=== PATIENT | male | born 1975 | race Hispanic/Latino ===

== ENCOUNTER → 2023-09-17 | Emergency (ER) | payer BC, OTHER ==
[~2023-09-17] MED LIST: CYCLOBENZAPRINE 10 MG TAB ONE; HYDROCODONE/APAP 10/325 TAB ONE; KETOROLAC 30 MG/ML INJ ONE
--- NOTE | 2023-09-17 23:33 | ER ---
Nurse's Notes [facility] Name: Cristobal Hayes Jr Age: 48 yrs Sex: Male : 1975 Arrival Date: 09/17/2023 Time: 21:56 Bed 17 Private MD: Diagnosis: Pain in left leg;Pain in right leg Presentation: 09/16 22:26 Chief complaint: Patient states: I was running and felt a thump in my ground and a pop jb4 in the back of my thigh. Coronavirus screen: At this time, the client does not indicate any symptoms associated with coronavirus-19. Ebola Screen: No symptoms or risks identified at this time. Initial Sepsis Screen: Does the patient meet any 2 criteria? No. Patient's initial sepsis screen is negative. Does the patient have a suspected source of infection? No. Patient's initial sepsis screen is negative. Risk Assessment: Do you want to hurt yourself or someone else? Patient reports no desire to harm self or others. Onset of symptoms was September 17, 2023. Transition of care: patient was not received from another setting of care. 22:26 Method Of Arrival: Ambulatory jb4 22:26 Acuity: CLAYTON 4 jb4 Triage Assessment: 22:28 General: Appears in no apparent distress. comfortable, Behavior is calm, cooperative. jb4 Pain: Complains of pain in left hamstring Pain does not radiate. Pain currently is 7 out of 10 on a pain scale. EENT: No signs and/or symptoms were reported regarding the EENT system. Neuro: Level of Consciousness is awake, alert, obeys commands, Oriented to person, place, time, situation. Cardiovascular: Patient's skin is warm and dry. Respiratory: Airway is patent Respiratory effort is even, unlabored, Respiratory pattern is regular, symmetrical. GI: No signs and/or symptoms were reported involving the gastrointestinal system. : No signs and/or symptoms were reported regarding the genitourinary system. Derm: Skin is intact, Skin is pink, warm \T\ dry. Musculoskeletal: Circulation, motion, and sensation intact. Range of motion: intact in all extremities. Historical: - Allergies: 23:50 Lomotil mix with cipro; jb4 - PMHx: 22:28 HTN; jb4 - PSHx: 22:28 Left ankle; Cholecystectomy; jb4 - Immunization history:: Adult Immunizations up to date. - Social history:: Smoking status: Patient denies any tobacco usage or history of. Patient uses alcohol, occasionally. Screenin:20 [facility] ED Fall Risk Assessment (Adult) History of falling in the last 3 months, lg3 including since admission No falls in past 3 months (0 pts). Abuse screen: Denies threats or abuse. Denies injuries from another. Nutritional screening: No deficits noted. Tuberculosis screening: No symptoms or risk factors identified. Assessment: 22:20 General: see triage assessment. lg3 23:48 Reassessment: Patient appears in no apparent distress at this time. Patient and/or jb4 family updated on plan of care and expected duration. Pain level reassessed. Patient is alert, oriented x 3, equal unlabored respirations, skin warm/dry/pink. Vital Signs: 22:26 BP 115 / 78; Pulse 83; Resp 16; Temp 97.4(TE); Pulse Ox 97% ; Weight 90.72 kg (R); jb4 Height 5 ft. 7 in. (R); Pain 7/10; 23:48 BP 115 / 71; Pulse 73; Resp 16; Pulse Ox 96% on R/A; jb4 22:26 Body Mass Index 31.32 (90.72 kg, 170.18 cm) jb4 22:26 Pain Scale: Adult jb4 ED Course: 22:01 Patient arrived in ED. gm2 22:02 [facility]ar[facility]C [facility]. kb 22:02 Natanael Rhodes MD is Attending Physician. kb 22:14 Kyleigh Pepper, NÉSTOR is Primary Nurse. lg3 22:16 Triage completed. lg3 22:20 Patient maintains SpO2 saturation greater than 95% on room air. lg3 22:28 Arm band placed on right wrist. jb4 22:41 US Extremity Venous Unilateral Ltd In Process Unspecified. EDMS 23:48 Patient has correct armband on for positive identification. Bed in low position. Call jb4 light in reach. Side rails up X 1. Provided Education on: Discharge instructions.. 23:48 No provider procedures requiring assistance completed. Patient did not have IV access jb4 during this emergency room visit. Administered Medications: 22:40 Drug: Ketorolac IM 30 mg IM once Route: IM; Site: right deltoid; jb4 22:40 Drug: [place] PO 10 mg-325 mg 1 tabs PO once Route: PO; jb4 22:40 Drug: Cyclobenzaprine PO 10 mg PO once Route: PO; jb4 Medication: 23:48 VIS not applicable for this client. jb4 Outcome: 23:33 Discharge ordered by MD. cheung 23:48 Discharged to home ambulatory, jb4 23:48 Condition: stable 23:48 Discharge instructions given to patient, Instructed on discharge instructions, follow up and referral plans. no drinking with medication, no driving heavy equipment, medication usage, Demonstrated understanding of instructions, follow-up care, medications, Prescriptions given X 2, 23:52 Patient left the ED. jb4 Signatures: Dispatcher [employer] EDMS Margarita Hunt, LISSETTE-C SLURRY WORKER-Noel Larsen RN RN jb4 Kyleigh Pepper RN RN lg3 Olivia Villarreal gm2 Corrections: (The following items were deleted from the chart) 22:22 22:15 Chief complaint: Patient states: laceration to left palm from knife. moderate lg3 bleeding noted lg3 22:22 22:15 Coronavirus screen: Client denies travel out of the [place] in the last 14 days. At lg3 this time, the client does not indicate any symptoms associated with coronavirus-19. lg3 22:22 22:15 Ebola Screen: No symptoms or risks identified at this time. lg3 lg3 22:22 22:15 Initial Sepsis Screen: Does the patient meet any 2 criteria? No. Patient's lg3 initial sepsis screen is negative. Does the patient have a suspected source of infection? No. Patient's initial sepsis screen is negative. lg3 22:22 22:15 Risk Assessment: Do you want to hurt yourself or someone else? Patient reports no lg3 desire to harm self or others. lg3 22:22 22:15 Onset of symptoms was September 17, 2023 lg3 lg3 22:22 22:15 Method Of Arrival: Ambulatory lg3 lg3 22:22 22:15 BP 139 / 87; Pulse 86bpm; Resp 17bpm; Spontaneous; Pulse Ox 98% RA; Temp 98.5F lg3 Temporal; 79.38 kg Reported; Height 6 ft. 0 in. Reported; BMI: 23.7; lg3 22:22 22:15 Acuity: CLAYTON 4 lg3 lg3 22:23 22:16 Allergies: No Known Allergies; lg3 lg3 22:23 22:16 Home Meds: Lamictal Oral; lg3 lg3 22:23 22:16 Home Meds: Seroquel Oral; lg3 lg3 22:23 22:16 Home Meds: Zoloft Oral; lg3 lg3 22:23 22:16 Home Meds: Klonopin Oral; lg3 lg3 22:23 22:16 PMHx: high cholesterol; lg3 lg3 22:23 22:16 PMHx: Anxiety; lg3 lg3 22:23 22:16 PMHx: Depressive disorder; lg3 lg3 22:23 22:16 Immunization history: Adult Immunizations up to date, Client reports receiving lg3 the 2nd dose of the Covid vaccine, Last tetanus immunization: unknown, Flu vaccine is up to date. lg3 22:23 22:16 Social history: Smoking status: Patient denies any tobacco usage or history of. lg3 Patient uses alcohol, only on a social basis. lg3 22:23 22:16 General: Appears in no apparent distress. Behavior is cooperative, anxious, lg3 lg3 22:23 22:16 Pain: Complains of pain in left hand lg3 lg3 22:23 22:16 EENT: No deficits noted. No signs and/or symptoms were reported regarding the lg3 EENT system. lg3 22:23 22:16 Neuro: No deficits noted. Stokes Agitation-Sedation Scale (RASS): 0 - Alert and lg3 Calm Level of Consciousness is awake, alert, obeys commands, Oriented to person, place, time, situation, lg3 22:23 22:16 Cardiovascular: No deficits noted. Denies chest pain, shortness of breath, lg3 Capillary refill < 3 seconds Clubbing of nail beds is absent JVD is absent Patient's skin is warm and dry. lg3 22:23 22:16 Respiratory: No deficits noted. Airway is patent Respiratory effort is even, lg3 unlabored, Respiratory pattern is regular, symmetrical, lg3 22:23 22:16 GI: No deficits noted. No signs and/or symptoms were reported involving the lg3 gastrointestinal system. lg3 22:23 22:16 : No deficits noted. No signs and/or symptoms were reported regarding the lg3 genitourinary system. lg3 22:23 22:16 Derm: Skin is intact, is healthy with good turgor, Skin is dry, Skin is normal, lg3 Skin temperature is warm Wound noted Left first web space lg3 22:23 22:16 Musculoskeletal: No deficits noted. No signs and/or symptoms reported regarding lg3 the musculoskeletal system. Circulation, motion, and sensation intact. Range of motion: intact in all extremities, lg3 22:23 22:16 Injury Description: Laceration sustained to Left first web space lg3 lg3 22:24 22:16 Arm band placed on right wrist. lg3 lg3 :24 22:20 Patient has correct armband on for positive identification. Bed in low position. lg3 Call light in reach. Side rails up X 1. lg3 :24 22:20 Client placed on continuous cardiac and pulse oximetry monitoring. NIBP lg3 monitoring applied. lg3 :24 22:20 Door closed. Noise minimized. Warm blanket given. lg3 lg3 23:52 22:28 Allergies: No Known Allergies; jb4 jb4
--- NOTE | 2023-09-17 23:33 | EDPHYS ---
Physician Documentation [facility] Name: Cristobal Hayes Jr Age: 48 yrs Sex: Male : 1975 Arrival Date: 09/17/2023 Time: 21:56 Bed 17 Private MD: ED Physician Natanael Rhodes HPI: 09/16 22:16 This 48 yrs old Male presents to ER via Unassigned with complaints of Leg kb Injury, Leg Pain. 22:16 Pt is a 48 year old male who presents for right calf pain that started a couple of days kb ago and got worse tonight while running. States he also had pain to medial right thigh. States he felt a pop in left thigh while running which is what made him come in today. Ambulates with steady gait. . Historical: - Allergies: 23:50 Lomotil mix with cipro; jb4 - PMHx: 22:28 HTN; jb4 - PSHx: 22:28 Left ankle; Cholecystectomy; jb4 - Immunization history:: Adult Immunizations up to date. - Social history:: Smoking status: Patient denies any tobacco usage or history of. Patient uses alcohol, occasionally. ROS: 22:15 Constitutional: As per HPI kb Exam: 22:15 Constitutional: This is a well developed, well nourished patient who is awake, alert, kb and in no acute distress. Head/Face: Normocephalic, atraumatic. ENT: Moist Mucous membranes Cardiovascular: Regular rate Respiratory: Respirations even and unlabored. No increased work of breathing. Talking in full sentences Abdomen/GI: Soft, non-tender. No distention Skin: Warm, dry with normal turgor. Normal color. MS/ Extremity: Pulses equal, no cyanosis. Neurovascular intact. Full, normal range of motion. Neuro: Awake and alert, GCS 15, oriented to person, place, time, and situation. Moves all extremities. Normal gait. Vital Signs: 22:26 BP 115 / 78; Pulse 83; Resp 16; Temp 97.4(TE); Pulse Ox 97% ; Weight 90.72 kg (R); jb4 Height 5 ft. 7 in. (R); Pain 7/10; 23:48 BP 115 / 71; Pulse 73; Resp 16; Pulse Ox 96% on R/A; jb4 22:26 Body Mass Index 31.32 (90.72 kg, 170.18 cm) jb4 22:26 Pain Scale: Adult jb4 MDM: 22:02 Patient medically screened. kb 22:16 Differential diagnosis: tendonitis, dvt, strain, sprain. Data reviewed: vital signs, kb nurses notes. 23:33 Counseling: I had a detailed discussion with the patient and/or guardian regarding the kb historical points, exam findings, and any diagnostic results supporting the discharge/admit diagnosis, radiology results, the need for outpatient follow up, a family practitioner, to return to the emergency department if symptoms worsen or persist or if there are any questions or concerns that arise at home. 09/16 22:14 Order name: US Extremity Venous Unilateral Ltd kb Administered Medications: 22:40 Drug: Ketorolac IM 30 mg IM once Route: IM; Site: right deltoid; jb4 22:40 Drug: [place] PO 10 mg-325 mg 1 tabs PO once Route: PO; jb4 22:40 Drug: Cyclobenzaprine PO 10 mg PO once Route: PO; jb4 Disposition: 09/17 00:58 Co-signature as Attending Physician, Natanael Rhodes MD I reviewed the patient's care rt provided by the Advanced Practice Provider and agree with the diagnosis and treatment plan. Disposition Summary: 09/17/23 23:33 Discharge Ordered Notes: Location: Home kb Condition: Stable kb Diagnosis - Pain in left leg kb - Pain in right leg kb Followup: kb - With: Emergency Department - When: As needed - Reason: Worsening of condition Followup: kb - With: Private Physician - When: 2 - 3 days - Reason: Recheck today's complaints, Continuance of care, Re-evaluation by your physician Discharge Instructions: - Discharge Summary Sheet kb - Musculoskeletal Pain kb - Muscle Strain, [id number] kb Forms: - Medication Reconciliation Form kb - Thank You Letter kb - Antibiotic Education kb - Prescription Opioid Use kb - Patient Portal Instructions kb - Leadership Thank You Letter Prescriptions: - Diclofenac Sodium 75 mg Oral tablet, delayed release (enteric coated) - take 1 tablet ORAL route 2 times per day As needed; 30 tablet; Refills: 0, kb Product Selection Permitted - orphenadrine citrate 100 mg Oral Tablet Sustained Release - take 1 tablet ORAL route 2 times per day As needed; 20 tablet; Refills: 0, kb Product Selection Permitted Signatures: Dispatcher [employer] Charanjit Sowistin, AGRICULTURE WORKER-C AGRICULTURE WORKER-Ckb Noel Brooks, RN RN jb4 Kyleigh Pepper, NÉSTOR RN lg3 Natanael Rhodes MD MD rt Corrections: (The following items were deleted from the chart) 09/16 22:23 22:16 Allergies: No Known Allergies; lg3 lg3 22:23 22:16 Home Meds: Lamictal Oral; lg3 lg3 22:23 22:16 Home Meds: Seroquel Oral; lg3 lg3 22:23 22:16 Home Meds: Zoloft Oral; lg3 lg3 22:23 22:16 Home Meds: Klonopin Oral; lg3 lg3 22:23 22:16 PMHx: high cholesterol; lg3 lg3 22:23 22:16 PMHx: Anxiety; lg3 lg3 22:23 22:16 PMHx: Depressive disorder; lg3 lg3 22:23 22:16 Immunization history: Adult Immunizations up to date, Client reports receiving lg3 the 2nd dose of the Covid vaccine, Last tetanus immunization: unknown, Flu vaccine is up to date. lg3 22:23 22:16 Social history: Smoking status: Patient denies any tobacco usage or history of. lg3 Patient uses alcohol, only on a social basis. lg3 23:52 22:28 Allergies: No Known Allergies; jb4 jb4
[2023-09-18 00:32] VITALS: BP 115/71; TEMP 97.4; O2SAT 96
--- NOTE | 2023-09-18 19:29 | RAD REPORT ---
EXAM DESCRIPTION: US - Extremity Venous Uni Ltd - 09/17/2023 10:39 pm CLINICAL HISTORY: Right calf swelling and pain. COMPARISON: None TECHNIQUE: Grayscale, color Doppler, duplex Doppler, spectral Doppler images and analysis with compr ession and augmentation of right lower extremity veins. FINDINGS: Right common femoral, greater saphenous, femoral, deep (profunda) femoral, popliteal, post erior tibial veins unremarkable without evidence of clot. IMPRESSION: No sonographic evidence of right lower extremity DVT. Electronically signed by: Dilan Portillo MD 09/17/2023 11:18 PM CDT Due to temporary technical issues with the PACS/Fluency reporting system, reports are being signed by the in house radiologists without review as a courtesy to insure prompt reporting. The interpreting radiologist is fully responsible for the content of the report.
== END ==
LOC: ER 21:56
DX: M79.605 Pain in left leg (principal); M79.604 Pain in right leg; I10 Essential (primary) hypertension
CPT/HCPCS: 93971; 96372; 99284